=== PATIENT | female | born 1935 | race Caucasian/White ===

== ENCOUNTER 2018-09-12 16:32 | Inpatient (IN) | payer MEDICARE ==
--- NOTE | 2018-09-12 17:25 | RAD ---
ABDOMEN TWO VIEW WITH ONE VIEW CHEST X-RAY: 09/12/18 HISTORY: Pain. COMPARISON: Chest radiograph 01/29/17. FINDINGS: Lungs are hyperinflated. There is scarring in the upper lobes as well as both lung bases. Granuloma i n the right lung base. Increased pericardial fat on the left side of the mediastinum. Mild dilatation of the pulmonary arter ies. Advanced calcifications of the aorta. Moderate levoscoliosis lumbar spine. There is extensive stool burden throughout the colon with what appears to be pneumatosis in the ascen ding and descending colon. IMPRESSION: Findings are highly concerning for pneumatosis of the colon. CT may be beneficial. Surgical consultat ion is recommended. No definite free air is seen under the hemidiaphragms on the upright exam. Code CHAZ Pinzon, 5:18. POS: CHANTE
[2018-09-12] MEDS ORDERED: Morphine 4 MG/ML VIAL ONE (17:58)
[2018-09-12] MEDS ORDERED: Sodium Chloride 0.9% 1,000 ML ONE (17:58)
[2018-09-12 18:11] LABS: #Basophils 0.1 thou/uL (0.0-0.2); #Lymphocytes 0.8 thou/uL (1.20-3.40); #Monocytes 0.8 thou/uL (0.11-0.59); #Neutrophils 14.1 thou/uL (1.40-6.50); %Basophils 0.7 % (0.0-1.0); %Eosinophils 0.1 % (0.0-10.0); %Lymphocytes 5.2 % (21.0-51.0); %Monocytes 4.9 % (0.0-10.0); %Neutrophils 89.1 % (42.0-75.0); Hemoglobin 13.3 g/dL (12.0-16.0); Mean Corpuscular HGB CONC 33.1 g/dL (32.0-36.0); Mean Corpuscular Hemoglobin 30.8 pg (27.0-31.0); Mean Corpuscular Volume 93.1 fL (78.0-98.0); Mean Platelet Volume 9.4 fL (7.4-10.4); Platelet Count 186 thou/uL (130-400); RBC Distribution Width 12.5 % (11.5-14.5); Red Blood Cell (RBC) Count 4.33 mill/uL (4.20-5.40); White Blood Cell (WBC) Count 15.8 thou/uL (4.8-10.8)
[2018-09-12 18:26] LABS: ALT (SGPT) 26 U/L (8-55); AST (SGOT) 31 U/L (5-34); Albumin 4.3 g/dL (3.4-4.8); Alkaline Phosphatase 54 U/L (40-150); Anion Gap 16 mmol/L (10-20); BUN (Urea Nitrogen) 25 mg/dL (9.8-20.1); Bilirubin, Total 0.6 mg/dL (0.2-1.2); Calc. Creatinine Clearance 0 mL/min (70-130); Calcium 9.7 mg/dL (7.8-10.44); Carbon Dioxide 37 mmol/L (23-31); Chloride 89 mmol/L (98-107); Estimated GFR-MDRD 66; Globulin 1.9 g/dL (2.4-3.5); Glucose 143 mg/dL (83-110); Lipase 79 U/L (8-78); Potassium 3.5 mmol/L (3.5-5.1); Protein, Total 6.2 g/dL (6.0-8.3); Sodium 138 mmol/L (136-145)
[2018-09-12] MEDS ORDERED: PROVENTIL INHALER 6.7 G (200 INHALATIONS) INH PRN (19:29)
[2018-09-12] MEDS: Sodium Chloride 0.9% 1,000 ML IV SCH (19:45)
[2018-09-12] MEDS: guaiFENesin ER 600 MG TAB PO SCH (20:58)
[2018-09-12] MEDS: Mometasone/Formoterol 60 PUFF AER INH SCH (20:58)
[2018-09-12] MEDS: Morphine 4 MG/ML VIAL SLOW IVP SCH (21:09)
[2018-09-12 21:18] VITALS: BMI 19.9
[2018-09-12] MEDS: metroNIDAZOLE 250 MG in Admixture Fee 1 EACH IVPB SCH (21:53)
[2018-09-12] MEDS: Zolpidem Tartrate 5 MG TAB PO PRN (21:54)
[2018-09-12] MEDS ORDERED: HumaLOG 300 UNITS/3 ML VIAL SC PRN (21:56)
[2018-09-12] MEDS ORDERED: Dextrose 5% in Water 1,000 ML IV PRN (21:56)
[2018-09-12] MEDS ORDERED: Dextrose 50% Abboject 50 ML SYRINGE IVP PRN (21:56)
[2018-09-12] MEDS ORDERED: metroNIDAZOLE 250 MG in Admixture Fee 2 EACH IVPB SCH (22:00)
[2018-09-12] MEDS: Ondansetron PF 4 MG/2 ML Vial IVP PRN (23:21)
[2018-09-13] MEDS: Morphine 4 MG/ML VIAL SLOW IVP SCH ×6 (01:12→21:10)
--- NOTE | 2018-09-13 03:24 | HP ---
HISTORY OF PRESENT ILLNESS: Ms. Chiu is a very pleasant 82-year-old white female patient of [facility], long-term, presenting to hospice for end-stage COPD. For the last several days, she has developed some constipation, which has not responded to enemas, mag citrate, or Dulcolax suppositories x3. She developed some intractable pain, was brought to the emergency room where she was seen by Dr. Pinzon. Abdominal x-ray revealed Pneumatosis cystoides intestinalis. After significant discussion with the family, it was elected to admit the patient under hospice for pain management and treatment of this condition. We did discuss this with the patient's family including the daughter and the patient and they agree. PAST MEDICAL HISTORY: Significant for; 1. 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 2. History of chronic bronchitis. 3. Coronary artery disease. 4. Tachycardia. 5. Mild spine degeneration. 6. Hypertension. 7. Hypercholesterolemia. 8. Diabetes mellitus type 2. 9. Insomnia. 10. Hypothyroidism. 11. Vertigo. 12. Dizziness. PAST SURGICAL HISTORY: 1. In 1956, tubal ligation. 2. In , hysterectomy. 3. In , appendectomy. 4. In 1993, stomach surgery by Dr. Wall. 5. In 2003, coronary artery bypass graft. FAMILY HISTORY: The patient's father at age 55 of an OR. The patient's mother at age 67 of an OR. The patient has one brother with coronary artery disease and four sisters with CAD. She has two healthy children. SOCIAL HISTORY: Reveals the patient is a former smoker. She had a [id number] history of smoking, but she denied drug use, HIV risk, regular exercise. She rarely has any beer to take. Presently is on hospice, living in her home with her daughter staying with her. PRESENT MEDICATIONS: Include; 1. Lisinopril, I believe, a 10 mg pill. 2. Lipitor 40 daily. 3. Lasix 40 daily. 4. Levothyroxine, unknown daily. 5. Metformin 500 daily. 6. DuoNeb 3 to 4 times a day. 7. Spiriva HandiHaler p.r.n. 8. Albuterol as a rescue inhaler p.r.n. 9. Nasonex p.r.n. ALLERGIES: THE PATIENT DENIES ANY KNOWN ALLERGIES. REVIEW OF SYSTEMS: CONSTITUTIONAL: Reveals the patient denies any fever, chills, or night sweats. She has increasing fatigue, mainly from being short of breath. She states she has not been eating well. Has been constipated for probably about a week, but she is not sure. RESP: She denies any chest pain. HEART:She denies any palpitations or tachycardia. RESPIRATORY: She states she is always somewhat short of breath, has not been wheezing and has not had her second treatment today for her COPD. GI: She has complained of constipation and has had a warm water enema, two mineral oil enemas, a bottle of MiraLAX, and three suppositories. She does complain of nausea and a little bit of vomiting. She does complain of acute abdominal pain that comes and cramps and comes and goes. GENITOURINARY: She denies any urinary symptoms. EXTREMITIES: She has not had any clubbing, cyanosis, or edema. SKIN: No rashes NEURO: No focal findings PSYCHE: No Anxiety or depression signs or symptoms PHYSICAL EXAMINATION: GENERAL: Reveals a well-developed, well-nourished, pleasant, but very thin white female with abdominal cramps and pain. . HEENT: Reveals normocephalic, nontraumatic cranium. Pupils are equally round, reactive. Extraocular movements intact. Nose and throat are somewhat dry. NECK: Supple without masses, nodes, or bruits. CHEST: Reveals distant breath sounds. They are also very shallow until she has pain and then she ends up taking deep breaths. She has no crackles, but she has very little air movement from her COPD. HEART: Reveals a regular rate and rhythm without murmurs, gallops, or rubs. ABDOMEN: Somewhat distended, somewhat tympanitic, and tender. She is tender with deep palpation. She has no significant organomegaly. Bowel sounds are fleeting that come and go. When she has cramps, they will start on one side and cross to the other side and cause quite a bit of pain. She has already had 4 mg of morphine. : Exam is deferred. EXTREMITIES: Reveal no clubbing, cyanosis, or edema. NEUROLOGIC: No focal deficits noted. IMPRESSION: 1. Pneumatosis cystoides intestinalis. 2. End-stage chronic obstructive pulmonary disease. 3. History of hypertension. 4. History of coronary artery disease. 5. History of diabetes type 2. 6. Hypothyroidism. 7. Fatigue. 8. Insomnia. 9. On hospice care. PLAN: The patient is admitted for pain control. We will hydrate her and we will start her on some IV Flagyl 250 mg q.8 hours at this time. When the patient is able to tolerate liquids and oral things, We will switch her over to metronidazole 250 q.8 hours p.o. We will order her morphine scheduled 4 mg q.4 hours. We will give her some morphine 2 mg q.2h p.r.n. Still awaiting her laboratory. Job ID: [id number] MTDD
[2018-09-13] MEDS: Sodium Chloride 0.9% 1,000 ML IV SCH ×2 (04:27→15:50)
[2018-09-13] MEDS: Levothyroxine Sodium 88 MCG TAB PO SCH (05:31)
[2018-09-13] MEDS: metroNIDAZOLE 250 MG in Admixture Fee 1 EACH IVPB SCH ×3 (05:33→22:04)
[2018-09-13] MEDS ORDERED: Non-Formulary Item 1 EACH (Tiotropium [Spiriva Handihaler] 18 MCG) INH SCH (09:00)
[2018-09-13] MEDS: Aspirin 81 mg Enteric Coated Tablet PO SCH (09:17)
[2018-09-13] MEDS: predniSONE 20 MG TAB PO SCH ×2 (09:17→17:15)
[2018-09-13] MEDS: Digoxin 0.125 MG TAB PO SCH (09:17)
[2018-09-13] MEDS: guaiFENesin ER 600 MG TAB PO SCH ×2 (09:18→21:06)
[2018-09-13] MEDS: Mometasone/Formoterol 60 PUFF AER INH SCH ×2 (09:18→21:09)
[2018-09-13] MEDS: Fluticasone Propionate Nasal Spray 16 gm Bottle NASAL SCH (09:18)
[2018-09-13] MEDS: Furosemide 40 MG TAB PO SCH ×2 (09:18→13:06)
--- NOTE | 2018-09-13 09:34 | PRG ---
DATE OF SERVICE: 09/13/2018 SUBJECTIVE: Ms. Chiu is an 82-year-old very pleasant white female with end-stage COPD. She developed acute abdominal pain along with constipation and was brought to the ER for pain management. She was found to have pneumatosis cystoides intestinalis. She was admitted, hydrated, placed on IV antibiotics and IV morphine for pain management. Her white count was 15,800 yesterday with hemoglobin 13.3, hematocrit 40.3. Sodium 138, potassium 3.5, chloride 89, bicarb 37 with a BUN of 25, creatinine 0.83. Over the evening, the patient had a bad night. She vomited approximately at 3:00 and then felt somewhat better, but has needed repeated dose of morphine for her pain control. Her daughter spent the night with her last night and states she is not doing well. PHYSICAL EXAMINATION: GENERAL: This is a well-developed, well-nourished, very pleasant, white female, presently with good pain control and resting. HEENT: Reveals normocephalic and nontraumatic cranium. The pupils are equally round. Extraocular movements are intact. Nose and throat are slightly dry. NECK: Supple without masses, nodes, or bruits. CHEST: Reveals distant breath sounds with some crackles this morning. HEART: Reveals a regular rate and rhythm. ABDOMEN: More distended than last night and tympanitic and tender with deep palpation. Bowel sounds are rare. Her cramps continue to come, but she has rested over the last 2 hours since the last time she had 4 mg of morphine. : Deferred. EXTREMITIES: Reveal no clubbing, cyanosis, or edema. IMPRESSION: 1. Pneumatosis cystoides intestinalis. 2. End-stage chronic obstructive pulmonary disease, presently on hospice. 3. History of hypertension. 4. History of coronary artery disease. 5. History of diabetes. 6. Hypothyroidism. 7. Fatigue. 8. Insomnia. 9. Admitted GIP (general inpatient) on hospice care. PLAN: 1. The patient is admitted for pain control. We will continue her IV Flagyl at this time since she is unable to take any oral medications. 2. Continue scheduled morphine q.4 hours and morphine 2 mg q.2 p.r.n. Job ID: [id number]
[2018-09-13] MEDS: Ondansetron PF 4 MG/2 ML Vial IVP PRN ×2 (15:44→22:08)
[2018-09-13] MEDS ORDERED: Bisacodyl 10 MG SUPP PR SCH (19:15)
[2018-09-13] MEDS: Zolpidem Tartrate 5 MG TAB PO PRN (22:10)
[2018-09-14] MEDS: Sodium Chloride 0.9% 1,000 ML IV SCH ×3 (02:37→21:19)
[2018-09-14] MEDS: Morphine 4 MG/ML VIAL SLOW IVP SCH ×6 (02:41→20:59)
[2018-09-14] MEDS: metroNIDAZOLE 250 MG in Admixture Fee 1 EACH IVPB SCH ×2 (05:41→13:57)
[2018-09-14] MEDS: Levothyroxine Sodium 88 MCG TAB PO SCH (06:37)
[2018-09-14] MEDS: predniSONE 20 MG TAB PO SCH ×2 (08:46→16:48)
[2018-09-14] MEDS: Aspirin 81 mg Enteric Coated Tablet PO SCH (08:46)
[2018-09-14] MEDS: Digoxin 0.125 MG TAB PO SCH (08:46)
[2018-09-14] MEDS: Mometasone/Formoterol 60 PUFF AER INH SCH ×2 (08:48→20:57)
[2018-09-14] MEDS: guaiFENesin ER 600 MG TAB PO SCH ×2 (08:48→20:56)
[2018-09-14] MEDS: Fluticasone Propionate Nasal Spray 16 gm Bottle NASAL SCH (08:48)
[2018-09-14] MEDS: Furosemide 40 MG TAB PO SCH (08:49)
--- NOTE | 2018-09-14 08:59 | PRG ---
DATE OF SERVICE: 09/14/2018 SUBJECTIVE: Ms. Chiu is an 82-year-old very unfortunate white female with end-stage COPD. On Saturday, she had acute abdominal pain, presented to the emergency room where she was found to have pneumatosis cystoides intestinalis. It required multiple doses of morphine to get under control. She was admitted to [facility] for pain management. The patient finally has her pain under control with morphine scheduled 4 mg every 4 hours. She had a much better night last night. Did get a suppository which helped to pass some gas, but no stool. She had no vomiting and slept very well last night. She was awakened this morning. States her stomach feels much improved, but still somewhat gassy. She still has not had a bowel movement. She is somewhat appreciative that her pain is under control. OBJECTIVE: VITAL SIGNS: This morning reveal blood pressure 157/65, pulse 82, respirations 20, O2 saturation 90% to 92% on 2 to 3 L per nasal cannula, and T-max 97.7. GENERAL: This is a well-developed, well-nourished, thin white female, in no apparent distress at this time. HEENT: Reveals normocephalic and nontraumatic cranium. Pupils equally round, reactive. Extraocular movements intact. Nose and throat are slightly dry. NECK: Supple without masses, nodes, or bruits. CHEST: Clear to auscultation. No rales, rhonchi, wheezes are heard. HEART: Reveals a regular rate and rhythm without murmurs, gallops, rubs. ABDOMEN: Obese, soft, tympanitic with occasional bowel sounds. Her cramps are much improved. She was able to sleep last night. She has not had a stool. : Deferred. EXTREMITIES: Reveal no clubbing, cyanosis, or edema. IMPRESSION: 1. Pneumatosis cystoides intestinalis. 2. End-stage chronic obstructive pulmonary disease, presently on hospice care. 3. Hypertension. 4. Coronary artery disease. 5. Diabetes. 6. Hypothyroidism. 7. Fatigue. 8. Insomnia. 9. [facility] (general inpatient admission) on hospice care. PLAN: 1. The patient is admitted for pain control. 2. If the patient is able to tolerate liquids today, then we will switch her over to oral Flagyl. 3. Continue morphine q.4 hours scheduled and morphine 2 mg p.r.n. Job ID: [id number] MTDD
[2018-09-14] MEDS ORDERED: fentaNYL 50 mcg/hour Patch TD SCH (19:00)
[2018-09-14] MEDS: metroNIDAZOLE 500 MG TAB PO SCH (20:57)
[2018-09-14] MEDS: Zolpidem Tartrate 5 MG TAB PO PRN (21:52)
[2018-09-14] MEDS ORDERED: Morphine IR Tab 15 MG TAB PO PRN (22:15)
[2018-09-15] MEDS: Morphine 4 MG/ML VIAL SLOW IVP SCH ×4 (01:51→14:05)
[2018-09-15] MEDS: Levothyroxine Sodium 88 MCG TAB PO SCH (05:23)
[2018-09-15] MEDS ORDERED: predniSONE 20 MG TAB PO SCH (08:00)
[2018-09-15] MEDS: Digoxin 0.125 MG TAB PO SCH (09:50)
[2018-09-15] MEDS: Aspirin 81 mg Enteric Coated Tablet PO SCH (09:50)
[2018-09-15] MEDS: metroNIDAZOLE 500 MG TAB PO SCH ×2 (09:51→14:22)
[2018-09-15] MEDS: Furosemide 40 MG TAB PO SCH (09:51)
[2018-09-15] MEDS: Fluticasone Propionate Nasal Spray 16 gm Bottle NASAL SCH (09:52)
[2018-09-15] MEDS: guaiFENesin ER 600 MG TAB PO SCH (09:52)
[2018-09-15] MEDS: Sodium Chloride 0.9% 1,000 ML IV SCH (09:53)
[2018-09-15] MEDS: Mometasone/Formoterol 60 PUFF AER INH SCH (09:53)
[2018-09-15 11:35] VITALS: BP 174/67; TEMP 97.8
--- NOTE | 2018-09-15 11:39 | DIS ---
DATE OF ADMISSION: 09/12/2018 DATE OF DISCHARGE: 09/15/2018 HOSPITAL COURSE: Ms. Chiu is a very pleasant 82-year-old white female with end-stage COPD. On Saturday, she had acute abdominal pain, presented to the emergency room, where she was found to have pneumatosis cystoides intestinalis. It required multiple doses of morphine to get it under control. She eventually was stabilized and admitted under hospice for [facility] care for pain management. Her pain is under control and she is well controlled now with morphine. She actually is able to sip a little bit of liquids and has no significant vomiting. She states she is ready to go home and feels like she would like to go home with a hospital bed at home. PHYSICAL EXAMINATION: VITAL SIGNS: Today reveal blood pressure 143/65, pulse 93, respirations 20, O2 saturations 97% on 2 L, and T-max 98.4. GENERAL: This is a well-developed, well-nourished, very pleasant, thin white female, in no apparent distress at this time. HEENT: Reveals normocephalic and nontraumatic cranium. Pupils are equally, round, and reactive. Extraocular movements are intact. Nose and throat are slightly dry but clear. NECK: Supple without masses, nodes, or bruits. CHEST: Clear to auscultation. No rales, no rhonchi, no wheezes are heard. Occasional cough is noted. HEART: Reveals a regular rate and rhythm without murmurs, gallops, or rubs. ABDOMEN: Obese with abdominal wall much less tender and much less tympanitic. Bowel sounds are improved from yesterday. The patient only has rare cramps at this time. She was able to sleep last night. She has been passing quite a bit of gas, but not had a stool. : Deferred. EXTREMITIES: Reveal no clubbing, cyanosis, or edema. IMPRESSION: 1. Pneumatosis cystoides intestinalis. 2. End-stage chronic obstructive pulmonary disease, presently on hospice care. 3. Hypertension. 4. Coronary artery disease. 5. Diabetes. 6. Hypothyroidism. 7. Fatigue. 8. Insomnia. 9. [facility]IP, which is general inpatient admission on hospice. PLAN: 1. The patient is much improved and will be discharged today. 2. The patient is tolerating some clear liquids. 3. The patient will continue on morphine as needed per Hospice. 4. The patient will continue on Flagyl 500 mg three times a day for seven more days. 5. The patient will be transferred home by private car in wheelchair. The patient will have a hospital bed at home. 6. The patient will continue with hospice care at home and control of her pain. Job ID: [id number]
[2018-09-15] MEDS ORDERED: Ondansetron ODT 4 MG TAB SL SCH (14:30)
[2018-09-19] MEDS ORDERED: predniSONE 5 MG TAB PO SCH (08:00)
[2018-09-23] MEDS ORDERED: predniSONE 5 MG TAB PO SCH (08:00)
== END 2018-09-15 15:00 | disposition hospice, home (50) | DRG 395 ==
LOC: NAV ERS 16:32 → NAV ACUTE 18:04
PROVIDERS: ADMIT Family Medicine; ATTEND Family Medicine
DX: K63.89 Other specified diseases of intestine (principal); J44.9 Chronic obstructive pulmonary disease, unspecified; I10 Essential (primary) hypertension; I25.10 Atherosclerotic heart disease of native coronary artery without angina pectoris; E11.9 Type 2 diabetes mellitus without complications; Z51.5 Encounter for palliative care; E03.9 Hypothyroidism, unspecified; G47.00 Insomnia, unspecified; E78.00 Pure hypercholesterolemia, unspecified; Z90.710 Acquired absence of both cervix and uterus; Z90.49 Acquired absence of other specified parts of digestive tract; Z95.1 Presence of aortocoronary bypass graft; Z98.51 Tubal ligation status; Z87.891 Personal history of nicotine dependence; Z79.84 Long term (current) use of oral hypoglycemic drugs; Z79.899 Other long term (current) drug therapy
CPT/HCPCS: 36416; 74022; 80053; 83605; 83690; 85025; 96374; J2270; J2405; J7050; J7506; J7620; Q0162